=== PATIENT | female | born 2000 | race African-American/Black ===

== ENCOUNTER 2022-07-26 15:43 | Outpatient (CLI) | payer BC | END 2022-07-26 15:44 | disposition home or self-care (01) | LOC: BICULT 15:43 | PROVIDERS: ATTEND Nurse Practitioner Family | DX: N63.24 Unspecified lump in the left breast, lower inner quadrant (principal) ==

== ENCOUNTER 2023-12-18 10:31 | Emergency (ER) | payer BC ==
[2023-12-18] MEDS ORDERED: Acetaminophen 500 MG TAB ONE (10:52)
[2023-12-18] MEDS ORDERED: Dexamethasone 10 MG/ML VIAL ONE (10:52)
== END 2023-12-18 11:45 | disposition home or self-care (01) ==
LOC: ERS 10:31
DX: J02.9 Acute pharyngitis, unspecified (principal)
CPT/HCPCS: 87081; 87430; 99282; J1100